=== PATIENT | female | born 1975 | race African-American/Black ===

== ENCOUNTER 2017-10-03 23:19 | Emergency (ER) | payer SELFPAY ==
[~2017-10-03] VITALS: Ht 162.6 cm; Wt 75.0 kg
[2017-10-04] MEDS ORDERED: ACETAMINOPHEN 500MG TABLET PO ONE
[2017-10-04 00:45] LABS: CLARITY URINE CLEAR (CLEAR); COLOR URINE YELLOW (YELLOW); KETONES URINE NEGATIVE (NEGATIVE); LEUKOCYTE ESTERASE URINE NEGATIVE (NEGATIVE); NITRITE URINE NEGATIVE (NEGATIVE); OCCULT BLOOD URINE NEGATIVE (NEGATIVE); PH URINE 5.5 (4.5-8.0); PROTEIN URINE NEGATIVE (NEGATIVE); SPECIFIC GRAVITY URINE 1.011 (1.005-1.030); UROBILINOGEN URINE 0.2 E.U./dL (0.2-1.0)
[2017-10-04 00:49] LABS: UCG SCREEN NEGATIVE
[2017-10-04 02:27] VITALS: BP 124/65
== END 2017-10-04 02:56 | disposition home or self-care (01) ==
LOC: ER 23:19
DX: E04.2 Nontoxic multinodular goiter (principal); V49.9XXA Car occupant (driver) (passenger) injured in unspecified traffic accident, initial encounter; Y93.89 Activity, other specified; Y92.89 Other specified places as the place of occurrence of the external cause; Y99.8 Other external cause status; Z90.710 Acquired absence of both cervix and uterus
CPT/HCPCS: 71045; 72125; 72128; 72131; 72170; 81003; 81025; 99285